=== PATIENT | male | born 1975 | race African-American/Black ===

== ENCOUNTER 2025-02-19 17:14 | Emergency (ER) | payer OTHER, SELFPAY ==
[2025-02-19] VITALS (13 sets, daily range): BP systolic 133–156; BP diastolic 76–91; PULSE 55–74; RESP 13–19; TEMP 36.2–36.6; O2SAT 98–100
--- NOTE | ~2025-02-19 | XR_ITS ---
EXAMINATION: XR chest 2V DATE: 02/19/2025 17:48 INDICATION: Chest pain TECHNIQUE: PA and lateral views of the chest were obtained. COMPARISON: None FINDINGS: The lungs are clear with no focal airspace opacities, pulmonary edema, pleural effusion or pneumothorax. The cardiomediastinal silhouette is normal. IMPRESSION: 1. No acute cardiopulmonary disease. Reviewed, dictated and finalized at location A.
--- NOTE | 2025-02-19 17:16 | ECG_ITS ---
Test Date: 2025-02-19 17:19:48 Measurements Intervals [place] Rate: 64 P: 56 [place]: 183 QRS: -7 QRSD: 101 T: 14 QT: 389 QTc: 404 Interpretive Statements SINUS RHYTHM BASELINE ARTIFACT- I, II, III, AVF, V3-V6 NORMAL ECG No previous ECG available for comparison Electronically Signed On 02-19-2025 21:16:31 CDT by Chinmay Kitchen D.O.
[2025-02-19 17:54] LABS: Hematocrit 41.3 % (42.0-52.0); Hemoglobin 13.1 g/dL (14.0-18.0); Immature Granulocyte Percent A 0.2 % (0-0.5); Lymphocytes Absolute Auto 1.51 K/mm3 (0.9-3.2); Mean Corpuscular HGB Conc 31.7 g/dl (32-36); Mean Corpuscular Hemoglobin 25.7 pg (26-34); Mean Corpuscular Volume 81.0 fl (80-100); Nucleated Red Blood Cells Absolute Auto 0.000 K/mm3 (0.0-0.012); Nucleated Red Blood Cells Perc 0.0 % (0.0-0.2); Platelet Count Result 184 k/mm3 (150-375); Red Blood Count 5.10 M/mm3 (4.6-6.20); White Blood Count 5.5 K/mm3 (4.5-10.0)
[2025-02-19 17:57] LABS: Alanine Aminotransferase 36 U/L (6-50); Albumin Level 4.4 g/dL (3.5-5.1); Alkaline Phosphatase 51 U/L (38-126); Anion Gap 8 mmol/L (4-12); Aspartate Amino Transferase 38 U/L (17-59); Bilirubin,Total 1.4 mg/dL (0.2-1.3); Blood Urea Nitrogen 16 mg/dL (9-20); Calcium 9.2 mg/dL (8.4-10.2); Carbon Dioxide 27 mmol/L (22-30); Chloride 103 mmol/L (98-107); Estimated CRCL calculation 67 ml/min; Estimated Glomerular Filt Rate 55; Glucose 122 mg/dL (65-110); Lipase 33 U/L (23-300); Potassium 3.3 mmol/L (3.4-5.0); Sodium 138 mmol/L (137-145); Total Protein 8.3 g/dL (6.3-8.2)
[2025-02-19 18:06] LABS: INR 1.0; Prothrombin Time 13.1 Seconds (11.1-14.7)
[2025-02-19 18:07] LABS: Partial Thromboplastin Time 30.2 Seconds (22.3-36.8)
[2025-02-19 18:08] LABS: Troponin I < 0.012 ng/mL (0.000-0.034)
--- NOTE | 2025-02-19 21:39 | ECG_ITS ---
Test Date: 2025-02-19 21:45:46 Measurements Intervals [place] Rate: 57 P: 47 [place]: 191 QRS: -5 QRSD: 101 T: 15 QT: 421 QTc: 412 Interpretive Statements SINUS BRADYCARDIA Compared to ECG 02/19/2025 17:19:48 Sinus rhythm no longer present Electronically Signed On 02-20-2025 11:42:46 CDT by Rebel Monahan M.D.
[2025-02-19 22:52] LABS: Troponin I < 0.012 ng/mL (0.000-0.034)
--- NOTE | 2025-02-19 23:12 | ED.GENADULT ---
HPI - General Adult General Chief complaint: Chest Pain Stated complaint: CP Time Seen by Provider: 02/19/25 21:57 History of Present Illness HPI narrative: Patient is a 49-year-old gentleman presents emergency department with chief complaint of chest pain. Patient reports he has been having pain in the left side of his chest for a long time patient reports over the last week he has been having more intermittent episodes patient states that he describes as a heavy feeling reports that it is currently gone Related Data Allergies Allergy/AdvReac Type Severity Reaction Status Date / Time No Known Allergies Allergy Verified 02/19/25 17:25 Review of Systems Review of Systems: A 10 system review of systems was completed on the patient and is negative except for what is stated in the HPI. Nursing and ancillary documentation was reviewed. Exam Narrative: GENERAL: Well-appearing, well-nourished, and in no acute distress. HEAD: Normocephalic, atraumatic. EYES: PERRLA and EOMI. ENT: Nares clear, no rhinorrhea or epistaxis. Mucous membranes moist. NECK: Supple. CHEST: Clear to auscultation. No respiratory distress. HEART: Regular rate and rhythm. No murmur heard. Normal peripheral pulses. ABDOMEN: Soft, nontender, nondistended, normal active bowel sounds. EXTREMITIES: Normal range of motion. No edema. SKIN: Warm, dry, no rash. NEURO: No focal deficits. Alert and oriented x3. PSYCH: Normal mood and affect. Course Vital Signs Vital signs: Vital Signs Temperature 36.6 C 02/19/25 17:22 Pulse Rate 63 02/19/25 17:22 Respiratory Rate 14 02/19/25 17:22 Blood Pressure 156/91 H 02/19/25 17:22 Pulse Oximetry 100 02/19/25 17:22 Oxygen Delivery Room Air 02/19/25 17:22 Temperature 36.2 C L 02/19/25 21:30 Pulse Rate 61 02/19/25 22:32 Respiratory Rate 14 02/19/25 22:32 Blood Pressure 148/81 H 02/19/25 22:32 Pulse Oximetry 100 02/19/25 21:47 Oxygen Delivery Room Air 02/19/25 17:22 Medical Decision Making [facility] Narrative Medical decision making narrative: Differential diagnosis includes ACS, non cardiac chest pain, atypical chest pain, pancreatitis, pneumonia, pneumothorax Chest x-ray showed no focal infiltrate Initial troponin was-3 hour troponin was negative EKG showed no acute ischemic changes Electrolytes showed a lipase of 33 bilirubin was slightly elevated 1.4 but liver enzymes are otherwise normal creatinine was 1.37 CBC was within normal limits with white count of 5.5 hemoglobin was 13.1 Patient is currently chest pain-free Vital Signs Vital Signs: Vital Signs Temperature 36.6 C 02/19/25 17:22 Pulse Rate 63 02/19/25 17:22 Respiratory Rate 14 02/19/25 17:22 Blood Pressure 156/91 H 02/19/25 17:22 Pulse Oximetry 100 02/19/25 17:22 Oxygen Delivery Room Air 02/19/25 17:22 Temperature 36.2 C L 02/19/25 21:30 Pulse Rate 61 02/19/25 22:32 Respiratory Rate 14 02/19/25 22:32 Blood Pressure 148/81 H 02/19/25 22:32 Pulse Oximetry 100 02/19/25 21:47 Oxygen Delivery Room Air 02/19/25 17:22 Lab Data 02/19/25 17:29 02/19/25 17:29 Labs: Lab Results 02/19/25 02/19/25 Range/Units 17:29 22:25 WBC 5.5 (4.5-10.0) K/mm3 RBC 5.10 (4.6-6.20) M/mm3 Hgb 13.1 L (14.0-18.0) g/dL Hct 41.3 L (42.0-52.0) % MCV 81.0 (80-100) fl MCH 25.7 L (26-34) pg MCHC 31.7 L (32-36) g/dl RDW 15.6 H (11.5-14.5) % Plt Count 184 (150-375) k/mm3 MPV 11.7 H (7.4-10.4) fl Immature Gran % (Auto) 0.2 (0-0.5) % Neut % (Auto) 64.1 (45.5-73.1) % Lymph % (Auto) 27.5 (18.3-44.2) % [place] % (Auto) 8.0 (2.6-8.5) % Eos % (Auto) 0.2 (0-4.4) % Baso % (Auto) 0.0 L (0.2-1.2) % Lymph # (Auto) 1.51 (0.9-3.2) K/mm3 [place] # (Auto) 0.4 (0.1-0.6) K/mm3 Eos # (Auto) 0.0 (0-0.3) K/mm3 Baso # (Auto) 0.0 (0.0-0.1) K/mm3 Abs Immat Gran (auto) 0.01 (0.00-0.031) K/mm3 Absolute Neuts (auto) 3.5 (1.3-6.7) K/mm3 Absolute Nucleated RBC 0.000 (0.0-0.012) K/mm3 Nucleated RBC % 0.0 (0.0-0.2) % PT 13.1 (11.1-14.7) Seconds INR 1.0 APTT 30.2 (22.3-36.8) Seconds Sodium 138 (137-145) mmol/L Potassium 3.3 L (3.4-5.0) mmol/L Chloride 103 (98-107) mmol/L Carbon Dioxide 27 (22-30) mmol/L Anion Gap 8 (4-12) mmol/L BUN 16 (9-20) mg/dL Creatinine 1.37 H (0.7-1.3) mg/dL Estim Creat Clear Calc 67 ml/min Estimated GFR 55 L (59 - ) Glucose 122 H (65-110) mg/dL Calcium 9.2 (8.4-10.2) mg/dL Total Bilirubin 1.4 H (0.2-1.3) mg/dL AST 38 (17-59) U/L ALT 36 (6-50) U/L Alkaline Phosphatase 51 (38-126) U/L Troponin I < 0.012 < 0.012 (0.000-0.034) ng/mL Total Protein 8.3 H (6.3-8.2) g/dL Albumin 4.4 (3.5-5.1) g/dL Lipase 33 (23-300) U/L Discharge Plan Discharge Clinical Impression: Chest pain Patient Disposition: Home Condition: Stable Instructions: Antibiotic Form, Chest Pain (ED) Patient Language: Bengali Follow-up/Referrals: Dalila Tenorio DO [Physician, Family Practice] PHYSICIAN,CONTINUOUS IMPROVEMENT CONSULTANT [Primary Care Provider, Internal Medicine] Time of Disposition: 23:16 Quality HEART score for chest pain patients History: slightly suspicious ECG: normal Age: > 45 and < 65 years Risk factors: 1 or 2 risk factors Troponin: < or = to 1x normal limit Heart score: 2
== END 2025-02-19 23:48 | disposition home or self-care (01) ==
PROVIDERS: Emergency Medicine; Emergency Provider Emergency Medicine
DX: R07.9 Chest pain, unspecified (principal); R00.1 Bradycardia, unspecified
CPT/HCPCS: 36415; 71046; 80053; 83690; 84484; 85025; 85610; 85730; 93005; 99284